=== PATIENT | male | born 2005 | race African-American/Black ===

== ENCOUNTER 2025-02-07 09:36 | Outpatient (REF) | payer MEDICAID, SELFPAY ==
[2025-02-07 15:25] LABS: CT PCR Urine NOT DETECTED (Not Detect.); NG PCR Urine NOT DETECTED (Not Detect.)
[2025-02-08 23:44] LABS: Trichomonas vag. RNA Ur Male NOT DETECTED (NOT DETECTED)
== END 2025-02-07 09:37 | disposition home or self-care (01) ==
LOC: HO.LNP 09:36
PROVIDERS: Family Medicine
DX: J06.9 Acute upper respiratory infection, unspecified (principal); R21 Rash and other nonspecific skin eruption; Z11.3 Encounter for screening for infections with a predominantly sexual mode of transmission; Z20.2 Contact with and (suspected) exposure to infections with a predominantly sexual mode of transmission
CPT/HCPCS: 87491; 87591; 87661; 99202

== ENCOUNTER 2025-02-07 09:36 | Outpatient (AMB) | payer MEDICAID, SELFPAY ==
--- NOTE | 2025-02-07 09:54 | AM.OFFWIN_ITS ---
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 Allergies No Known Allergies Allergy (Verified 02/07/25 10:06) Medication List - Last Reconciled 02/07/25 by Shruti Quick MD No Known Home Meds Do you need a note to return to daycare/school/sports/work: No HPI HPI Comments History of Present Illness Details History of Present Illness The patient is a 20-year-old male presenting for evaluation of a rash, swollen lymph nodes, right ear discomfort and associated symptoms after feeling unwell for approximately 5 days. - The patient reports the onset of sympt oms approximately 5 days ago. - He started noticing right ear pain, fa cial pressure, swollen lymph nodes in the groin and neck, and fatigue - He developed a non-pruritic, non-painf ul rash on his chest, back, stomach, and arms, which he noticed after taking Aleve. - He has taken Aleve in the past without any prior reaction. - No shortness of breath or trouble jemma thing/speaking. - He has tried Benadryl and ibuprofen wi thout noticeable improvement in his symptoms. - Reports rash and lymphadenopathy has s rachelle been improving. - The patient denies any new medications , foods, lotions, soaps, or detergents. - He has a history of asthma but does no t use an inhaler. - He believes his childhood vaccinations are up to date. - He has been using Flonase for the past few days. - He denies sore throat, runny nose, and congestion, fevers, chills, N/V/D. - Patient also requesting STD testing. Denies any concern for STDs. Denies any urinary symptoms, penile discharge, testicular pain, or scrotal swelling Review of Systems Constitutional: Negative for fevers, chills HENT: Reports right ear pain and facial pressure. Negative for congestion, rhinorrhea, sore throat Lymphatic: Reports swollen lymph nodes in his neck and groin. Respiratory: Negative for cough, shortness of breath Cardiac: Negative for chest pain Gastrointestinal: Denies nausea, vomiting, or diarrhea. Genitourinary: Denies urinary symptoms or penile discharge. Skin: Reports a non-pruritic, non-painful rash over his chest, back, and arms. Musculoskeletal: Negative for myalgias, Physical Exam General Appearance: Normal appearance, well developed. No acute distress. ENT: External ears and ear canals normal. Bilateral middle ear effusions present. TM without erythema or bulging. No significant nasal discharge or congestion present. No postnasal drip. Oropharynx clear without erythema or exudate. Slightly enlarged Left anterior cervical lymph node palpated without tenderness Head: Normocephalic, atraumatic. Pulmonary: No respiratory distress. Clear to auscultation bilaterally. Speaking in full sentences Cardiac: Regular rate and rhythm. No murmurs. Musculoskeletal: Moving all extremities spontaneously and against gravity. Skin: Erythematous maculopapular rash primarily present along the torso and back. Nontender and nonpruritic. Mental Status: Alert and Oriented x 3. Psychiatric: Normal mood. Normal affect. Physical Exam Vital Signs: Last Vital Signs Temp 98.7 F 02/07/25 09:57 Pulse 90 02/07/25 09:57 BP 131/76 02/07/25 09:57 Pulse Ox 98 02/07/25 09:57 Oxygen Delivery Method Room Air 02/07/25 09:57 BMI result Body Mass Index 23.3 Assessment & Plan Assessment & Plan (1) Viral URI: Code(s): J06.9 - Acute upper respiratory infection, unspecified (2) Rash: Code(s): R21 - Rash and other nonspecific skin eruption (3) Screening for STD (sexually transmitted disease): Code(s): Z11.3 - Encounter for screening for infections with a predominantly sexual mode of transmission Plan Assessment and Plan 1. Viral Syndrome vs. Allergic Reaction - Patient presents with lymphadenopathy, facial pressure, right ear pressure, a nd fatigue for 5 days. He also developed a maculopapular rash along the torso and back after taking Aleve that has been improving. - Discussed rash appears secondary to viral exanthem versus allergic reaction. Less likely for Aleve to be cause of rash as his previous tolerating the medication in the past without issues. Patient reports childhood immunizations are up-to-date. - Offered COVID flu RSV testing which patient declined - As the rash has been improving, recommended Zyrtec or Abbey daily to help with symptoms. - Advised to continue Flonase daily to help with sinus pressure. Advised medication may take a couple of days taken effect - Recommend rest and increasd fluids - Follow-up if worsening symptoms Screening for Sexually Transmitted Infections - Patient requested STD testing; he is currently asymptomatic - The patient provided a urine sample for gonorrhea, chlamydia, and trichomonas testing. Blood work for HIV, hepatitis B, hepatitis C, and syphilis was ordered. The patient was directed to the lab to have samples collected. - Recommend to avoid sexual activty until results - The patient will be contacted with all test results. Patient was informed and verbally consented to the use of an ambient scribe for clinic note documentation during the visit. Orders: Orders CT NG by PCR Urine Today Z11.3 - Encounter for screening for infections with a predominantly sexual mode of transmission Hepatitis B Surface Antigen Today Z11.3 - Encounter for screening for infections with a predominantly sexual mode of transmission Hepatitis C Antibody Today Z11.3 - Encounter for screening for infections with a predominantly sexual mode of transmission HIV Ab/Ag Today Z11.3 - Encounter for screening for infections with a predominantly sexual mode of transmission Syphilis Screen Today Z11.3 - Encounter for screening for infections with a predominantly sexual mode of transmission Trichomonas vag. RNA Ur Male Today Z11.3 - Encounter for screening for infections with a predominantly sexual mode of transmission Coding Level of Care Code New Pt Level 3 (32919) Diagnoses Viral URI J06.9 Rash R21 Screening for STD (sexually transmitted disease) Z11.3
[2025-02-07 09:57] VITALS: BP 131/76; PULSE 90; TEMP 37.1; O2SAT 98; BMI 23.3
== END 2025-02-07 10:44 | disposition home or self-care (01) ==
PROVIDERS: Visit Provider Family Medicine
DX: J06.9 Acute upper respiratory infection, unspecified (principal); R21 Rash and other nonspecific skin eruption; Z11.3 Encounter for screening for infections with a predominantly sexual mode of transmission
CPT/HCPCS: 99203

== ENCOUNTER 2025-02-07 10:43 | Outpatient (REF) | payer MEDICAID, SELFPAY ==
[2025-02-08 04:10] LABS: Syphilis Screen Reactive (Nonreactive)
[2025-02-08 04:46] LABS: HBsAGNum1 0.51 S/CO (0.00-0.99); HIV Num 1 0.13 S/CO (0.00-0.99); Hepatitis B Surface Antigen Negative (Negative); ~HepC Num1 0.28 S/CO (0.00-0.79); ~Hepatitis C Antibody Nonreactive (Nonreactive)
[2025-02-15 12:58] LABS: T.Pallidum Particle Agg Test Reactive (Nonreactive)
== END 2025-02-07 10:44 | disposition home or self-care (01) ==
LOC: HO.HKASLDS 10:43
PROVIDERS: Visit Provider Family Medicine
DX: Z11.3 Encounter for screening for infections with a predominantly sexual mode of transmission (principal); Z11.59 Encounter for screening for other viral diseases
CPT/HCPCS: 36415; 86592; 86780; 86803; 87340; 87389

== ENCOUNTER 2025-02-22 10:02 | Outpatient (REF) | payer MEDICAID, SELFPAY ==
[2025-02-22 13:42] LABS: MANUAL DIFF FLAG NO
[2025-02-22 13:51] LABS: Hematocrit 42.7 % (42.0-52.0); Hemoglobin 14.4 g/dl (14.0-18.0); Imm Gran Abs Auto 0.01 X10*3/uL (0.00-0.03); Imm Gran Pct Auto 0.1 % (0.0-0.4); Lymphocytes Absolute Auto 2.1 X10*3/uL (1.2-4.9); Mean Corpuscular HGB Conc 33.7 g/dl (31.0-36.0); Mean Corpuscular Hemoglobin 30.8 pg (27.0-33.0); Mean Corpuscular Volume 91.4 fL (80.0-98.0); NRBC Abs Auto 0.000 X10*3/uL (0.0-0.012); NRBC Pct Auto 0.0 /100WBC (0.0-0.2); Platelet Count 237 X10*3/uL (160-400); Red Blood Count 4.67 X10*6/uL (4.60-5.80); White Blood Count 7.2 X10*3/uL (4.8-10.8)
[2025-02-22 14:02] LABS: Appearance Urine Clear; Glucose Urine UA Negative (Negative); PH 5.5 (5.0-9.0); Specific Gravity - Urine 1.020 (1.005-1.025)
[2025-02-22 18:36] LABS: Alanine Aminotransferase 47 U/L (0-40); Albumin Level 4.4 g/dL (3.5-5.0); Alkaline Phosphatase 54 U/L (39-117); Anion Gap 10 (12-20); Aspartate Amino Transferase 31 U/L (5-37); Blood Urea Nitrogen 13 mg/dL (9-16); Calcium 9.3 mg/dL (8.4-10.2); Carbon Dioxide 26 mmol/L (22-29); Chloride 107 mmol/L (96-108); Cholesterol 171 mg/dL (<200); Estimated Glomerular Filt Rate > 60; HDL Cholesterol 40 mg/dL (>40); Magnesium 2.0 mg/dL (1.6-2.6); Potassium 4.3 mmol/L (3.3-5.1); Sodium 139 mmol/L (135-145); Total Protein 7.1 g/dL (6.5-8.0); Triglycerides 65 mg/dL (<150)
[2025-02-22 19:01] LABS: Folate 10.7 ng/mL (> or = 4.0); Vitamin B12 406 pg/mL (200-900)
[2025-02-27 15:09] LABS: VITAMIN D (1,25 OH) D3 71 pg/mL; Vit D (1,25-Dihydroxy) Total 71 pg/mL (18-72); Vitamin D (1,25 OH) D2 <8 pg/mL
== END 2025-02-22 10:03 | disposition home or self-care (01) ==
LOC: HO.HKASLDS 10:02
PROVIDERS: PCP Student in an Organized Health Care Education/Training Program; Visit Provider Student in an Organized Health Care Education/Training Program
DX: Z13.9 Encounter for screening, unspecified (principal); Z23 Encounter for immunization; A53.9 Syphilis, unspecified; F90.9 Attention-deficit hyperactivity disorder, unspecified type; F32.A Depression, unspecified; N64.52 Nipple discharge; F12.90 Cannabis use, unspecified, uncomplicated; Z79.2 Long term (current) use of antibiotics
CPT/HCPCS: 36415; 80053; 80061; 81003; 82607; 82652; 82746; 83036; 83735; 84443; 85025; 90471; 90656; 99202

== ENCOUNTER 2025-02-22 10:02 | Outpatient (AMB) | payer MEDICAID, SELFPAY ==
[2025-02-22 10:04] VITALS: BP 133/74; PULSE 88; TEMP 36.7; O2SAT 96; BMI 24.0
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
== END 2025-02-22 10:33 | disposition home or self-care (01) ==
LOC: HO.HMCFMS 10:03
PROVIDERS: Visit Provider Student in an Organized Health Care Education/Training Program
DX: A53.9 Syphilis, unspecified (principal); F90.9 Attention-deficit hyperactivity disorder, unspecified type; F32.A Depression, unspecified; N64.52 Nipple discharge; F12.90 Cannabis use, unspecified, uncomplicated; Z23 Encounter for immunization

== ENCOUNTER 2025-03-09 11:24 | Outpatient (AMB) | payer MEDICAID, SELFPAY ==
--- NOTE | 2025-03-09 11:28 | A.OFFPC_ITS ---
Vital Signs 03/09/25 11:34 Height 5 ft 9.88 in Weight 161 lb BMI 23.2 BP 118/57 L Blood Pressure Location Lt brachial Position Sitting Pulse 77 Pulse Source Pulse Oximeter Temp 97.9 F Temp Source Oral Pulse Oximetry (%) 97 Oxygen Delivery Method Room Air Intake Visit Reasons: 2 wk - lab review Accompanied by: Self / Same As Patient Allergies No Known Allergies Allergy (Verified 03/09/25 11:29) Tobacco use date assessed: 03/09/25 Dental Screening Dental Screen Date: 03/09/25 Did you have a dental visit in the last 12 months?: Yes HPI HPI Comments History of Present Illness Details History of Present Illness The patient is a 20 year old male presenting with a review of laboratory results. Hyperlipidemia: The patient's lipid panel shows a slightly elevated bad cholesterol and borderline normal good cholesterol, although total cholesterol and triglycerides are good. The labs were not done in a fasting state, which may have skewed the results to be higher than they actually are. History of syphilis: The patient has a history of syphilis and received an inquiry about post- exposure prophylaxis measures. He was counseled on options such as Doxy-PEP. Diagnostic Results: - Complete blood count: White blood cell s, red blood cells, hemoglobin, hemato crit, and platelets are normal. - Comprehensive metabolic panel: Sodium, potassium, liver function, calcium, and magnesium are normal. - Glucose: Random glucose and hemoglobin A1c are within normal limits. - Lipid panel: Bad cholesterol is slight ly high, good cholesterol is borderline normal, and total cholesterol and triglycerides are good. - Vitamins: B12 and vitamin D levels are good. - Folate: Normal. - Thyroid function tests: Normal. - Urinalysis: Normal. Past Medical History - History of syphilis, status post treat ment. Health Maintenance REPLACED BY [facility] Medical History (Updated 03/09/25 @ 22:14 by Fan Penny MD) History of syphilis Hyperlipidemia Cannabis use disorder Nipple discharge Depression ADHD Syphilis Family History Mother No problems noted. Father No problems noted. Social History Housing: Apartment Patient Tobacco Use Status: Never used Tobacco e-Cigarette/Vaping Use: Never Used service: No Current occupational status: unemployed Cognitive needs: No Hearing needs: No Vision needs: No Questionnaire Thrive Questionnaire Date Thrive assessed: 02/22/25 I am a: Patient What is your living situation today?: I have a steady place to live Within the past 12 months, did the food you bought not last and you didn't have the money to get more?: Sometimes True Within the past 12 months, did you worry whether your food would run out before you got money to buy more?: Sometimes True Do you have trouble paying for medicines?: I choose not to answer this question Do you have trouble getting transportation to medical appointments?: I choose not to answer this question Do you have trouble paying your heating and electricity bill?: I choose not to answer this question Do you have trouble taking care of your child, family member or friend?: No Are you currently unemployed and looking for a job?: Yes Are you interested in more education?: Yes THRIVE Score: 2 GARO-7 AMB Questionnaire GARO-7 Date GARO - 7 assessed: 02/22/25 Source: Developed by Drs. Rogerio Kirkland, Jossy Gan, Willam Barr and colleagues, with an educational emmanuel from [employer]. Review of Systems Narrative Review of Systems - General: Denies any current concerns. 10-point ROS reviewed and negative except as noted in HPI Physical exam (Primary Care) Vital Signs: Last Vital Signs Temp 97.9 F 03/09/25 11:34 Pulse 77 03/09/25 11:34 BP 118/57 L 03/09/25 11:34 Pulse Ox 97 03/09/25 11:34 Oxygen Delivery Method Room Air 03/09/25 11:34 BMI result Body Mass Index 23.2 Tobacco/Smoking Status: Tobacco use Status Tobacco use date assessed 03/09/25 03/09/25 11:32 Patient Tobacco Use Status Never used Tobacco 03/09/25 11:32 e-Cigarette/Vaping Use Never Used 03/09/25 11:32 Thrive Assessment: Date of Thrive Assessment Date Thrive assessed 02/22/25 03/09/25 11:32 Narrative Physical Exam General: Well-appearing, in no acute distress. Vital signs: Within normal limits. HEENT: Normocephalic, atraumatic. PERRLA, EOMI. Conjunctiva clear, sclera anicteric. Oropharynx clear, mucous membranes moist. TMs intact bilaterally. Neck: Supple, no lymphadenopathy, no thyromegaly, no JVD or carotid bruits. Cardiovascular: RRR, normal S1/S2, no murmurs, rubs, or gallops. Peripheral pulses 2+ and symmetric. No edema. Respiratory: Lungs clear to auscultation bilaterally, no wheezes, rales, or rhonchi. Normal effort. Abdomen: Soft, non-tender, non-distended. Normoactive bowel sounds. No hepatosplenomegaly, no masses. MSK: Full range of motion, no joint swelling or deformity. Normal gait. Skin: Warm, dry, intact. No rashes, lesions, or pallor. Neuro: Alert and oriented x3. Cranial nerves II-XII intact. Strength 5/5 throughout. Sensation intact. Reflexes 2+ symmetric. Normal coordination and gait. Psych: Appropriate mood and affect. Normal judgment and insight. Office Procedures Flu Questionnaire Does the patient have a severe egg allergy?: No Does the patient have severe life threatening allergies?: No Does the patient have a fever or illness today?: No Has the patient ever had Guillain-[place] Syndrome?: No Has the patient ever had any past reaction to a flu shot?: No Immunizations Fluarix [id number] (PF) 45 mcg (15 mcg x 3)/0.5 mL IM syringe Performing Provider: Fan Penny MD Performing Location: [facility] [place] [facility] Documented (not given) by: Myrtle Smith CMA on 03/09/25 11:38 Reason Not Given: Received Previously Coding Level of Care Code Est Pt Level 3 (12119) Add On Problem Visit Only Diagnoses Hyperlipidemia E78.5 History of syphilis Z86.19 Assessment & Plan Assessment & Plan (1) Hyperlipidemia: Code(s): E78.5 - Hyperlipidemia, unspecified Category: Medical (2) History of syphilis: Code(s): Z86.19 - Personal history of other infectious and parasitic diseases Category: Medical Plan Consent Patient was informed and verbally consented to the use of an ambient scribe for clinic note documentation during this visit. Plan 1. Lab Results Review - Labs were reviewed with the patient and most results were within normal limits, including CBC, CMP, glucose/A1c, vitamin levels, thyroid, and urinalysis. 2. Hyperlipidemia - The lipid panel, which was non-fasting, showed slightly elevated bad cholesterol and borderline good cholesterol. - The non-fasting state may have skewed the results, and I am not concerned at this time. 3. History Of Syphilis - Syphilis testing will be repeated in April to confirm successful treatment. - The patient inquired about post-exposure prophylaxis, specifically doxy-PEP. - I have advised him to research the topic and schedule a follow-up appointment to discuss it further and make an informed decision. Discussion Notes I reviewed the patient's recent lab results, which were largely reassuring. I noted his non-fasting lipid profile showed slightly elevated bad cholesterol, but I am not concerned at this time as the non-fasting state could have skewed the results. We discussed the plan to repeat syphilis testing in April to ensure treatment was effective. The patient inquired about post-exposure prophylaxis (doxy-PEP), and I advised him to research it and schedule a follow- up visit to discuss his findings and make an informed decision together. I estab lished myself as his new primary care physician and encouraged him to a schedule an appointment for any future questions or concerns. Patient Instructions - Your lab results were mostly normal. - Your bad cholesterol was a little high, but this might be because you did not fast before the test. - We will repeat your syphilis test in April to make sure the treatment worked. - Please research doxy-PEP (post-exposure prophylaxis), and then make an appointment to talk with me about it. - Feel free to come in and talk to me about any questions or concerns you have in the future. Medical Decision Making The patient presented for a review of his recent laboratory studies. His results are largely unremarkable, showing normal CBC, CMP, glucose, A1c, vitamin levels, and thyroid function. The non-fasting lipid panel revealed a mild elevation in bad cholesterol, which I attribute to the non-fasting state and is not clinically concerning at this time. Follow-up syphilis serology is planned for April to confirm treatment efficacy. The patient inquired about post-exposure prophylaxis for STIs. Given the importance of shared decision-making, I have tasked the patient with researching this topic so we can have a more informed discussion during a subsequent visit to determine the best course of action for him. Total Time Statement 20 min Total time spent caring for the patient today includes pre-visit chart review, documentation, review of laboratory and diagnostic imaging results, medication reconciliation, medically necessary evaluation, counseling on diagnoses, care coordination, ordering appropriate tests and medications, review of tests performed by other providers, reporting test results to the patient, and communication with other healthcare providers. Orders: Orders Influenza [id number] Immunization Today Z23 - Encounter for immunization
[2025-03-09 11:34] VITALS: BP 118/57; PULSE 77; TEMP 36.6; O2SAT 97; BMI 23.2
== END 2025-03-09 11:43 | disposition home or self-care (01) ==
LOC: HO.HMCFMS 11:25
PROVIDERS: PCP Student in an Organized Health Care Education/Training Program; Visit Provider Student in an Organized Health Care Education/Training Program
DX: E78.5 Hyperlipidemia, unspecified (principal); Z86.19 Personal history of other infectious and parasitic diseases; Z23 Encounter for immunization

== ENCOUNTER → 2025-03-09 11:24 | Outpatient (BNVA) | payer MEDICAID, SELFPAY | PROVIDERS: Visit Provider Student in an Organized Health Care Education/Training Program | DX: E78.5 Hyperlipidemia, unspecified (principal); Z86.19 Personal history of other infectious and parasitic diseases | CPT/HCPCS: 90471; 99212 ==

== ENCOUNTER 2025-03-16 10:26 | Outpatient (AMB) | payer MEDICAID, SELFPAY ==
[2025-03-16 10:40] VITALS: PULSE 82; TEMP 37.4; O2SAT 99; BMI 23.2
--- NOTE | 2025-03-16 10:40 | AM.OFFWIN_ITS ---
Intake Vital Signs 03/16/25 10:40 Height 5 ft 9.88 in Weight 161 lb BMI 23.2 Blood Pressure Location Lt brachial Position Sitting Pulse 82 Pulse Source Pulse Oximeter Temp 99.3 F Temp Source Oral Pulse Oximetry (%) 99 Oxygen Delivery Method Room Air Intake Visit Reasons: EP- Swollen Lymph Nodes Patient Tobacco Use Status: Never used Tobacco Allergies No Known Allergies Allergy (Verified 03/09/25 11:29) HPI HPI Comments History of Present Illness Details History of Present Illness The patient is a 20-year-old male presenting with rectal discomfort recurrent inguinal lymphadenopathy. - Patient reports a 3-4 day history of p elvic and rectal discomfort. - The pain is exacerbated by bowel movem ents and when straining to urinate. - He denies any diarrhea or constipation , however has noticed a small amount of blood on his toilet paper when wiping. - He assumed his symptoms were due to he morrhoids and has been using [id number] suppositories, cooling gel, and witch kee pads which have not provided significant relief. - He has also noticed inguinal lymphaden opathy bilaterally. - He reports nausea, however no vomiting . - He denies any penile pain, penile disc harge, testicular pain, urinary frequency, dysuria, or urinary urgency. Denies any blood in the urine. - Patient recently completed a full cour se of antibiotics for syphilis about a month ago. - He is scheduled for follow-up blood wo rk in April for confirmation of infection clearance. - Patient denies any penetrative sexual activity in the last 6 months. Reports participating in [employer]. Review of Systems Constitutional: Negative for fevers, chills Gastrointestinal: Reports rectal pain and blood on toilet paper upon wiping. Reports nausea. Negative for vomiting, constipation, diarrhea, black tarry stools Genitourinary: Negative for difficulty urinating, dysuria, urinary frequency, urinary urgency, flank pain, hematuria, genital sores, penile pain, penile discharge, penile swelling, scrotal swelling, testicular pain Lymphatic: Reports swollen lymph nodes in the groin. Skin: Negative for rash or wounds Physical Exam General Appearance: Normal appearance, well developed. No acute distress Head: Normocephalic, atraumatic Pulmonary: No respiratory distress. Speaking in full sentences Musculoskeletal: Moving all extremities spontaneously and against gravity GI: Patient consented to perform sensitive exam. He declined escort blind. No external hemorrhoids or anal fissures noted. No other rashes or wounds noted along the external sphincter. No active bleeding present. Patient reported tenderness with rectal exam. : No swelling, erythema, or tenderness of the testicles or penis. No penile discharge noted. No genital sores or wounds noted. Mental Status: Alert and Oriented x 3 Psychiatric: Normal mood. Normal affect. [facility] Medical History (Updated 03/09/25 @ 22:14 by Fan Penny MD) History of syphilis Hyperlipidemia Cannabis use disorder Nipple discharge Depression ADHD Syphilis Family History Mother No problems noted. Father No problems noted. Social History Housing: Apartment Patient Tobacco Use Status: Never used Tobacco e-Cigarette/Vaping Use: Never Used service: No Current occupational status: unemployed Cognitive needs: No Hearing needs: No Vision needs: No Physical Exam Vital Signs: Last Vital Signs Temp 99.3 F 03/16/25 10:40 Pulse 82 03/16/25 10:40 Pulse Ox 99 03/16/25 10:40 Oxygen Delivery Method Room Air 03/16/25 10:40 BMI result Body Mass Index 23.2 Results AMB Urinalysis, Automated UA Leukoctes 0 Jena/uL Last Edit by Lissette Ghosh MA on 03/16/25 11:48 UA Nitrite Negative Last Edit by Lissette Ghosh MA on 03/16/25 11:48 UA Urobilinogen 0.2 mg/dL Last Edit by Lissette Ghosh MA on 03/16/25 11:48 UA Protein 0 mg/dL Last Edit by Lissette Ghosh MA on 03/16/25 11:48 UA pH 6.0 Last Edit by Lissette Ghosh MA on 03/16/25 11:48 UA Blood 0 Danyel/uL Last Edit by Lissette Ghosh MA on 03/16/25 11:48 UA Specific [place] 1.005 Last Edit by Lissette Ghosh MA on 03/16/25 11:4 8 UA Ketone Negative Last Edit by Lissette Ghosh MA on 03/16/25 11:48 UA Bilirubin 0 mg/dL Last Edit by Lissette Ghosh MA on 03/16/25 11:48 UA Glucose 0 mg/dL Last Edit by Lissette Ghosh MA on 03/16/25 11:48 Results Reviewed Results Reviewed: Laboratory Last Values Urine pH (Auto) 6.0 03/16/25 11:46 Specific [place] (Auto) 1.005 03/16/25 11:46 Urine Protein (Auto) 0 mg/dL 03/16/25 11:46 Glucose (UA)(Auto) 0 mg/dL 03/16/25 11:46 Urine Ketones (Auto) Negative 03/16/25 11:46 Urine Blood (Auto) 0 Danyel/uL 03/16/25 11:46 Urine Nitrite (Auto) Negative 03/16/25 11:46 Urine Bilirubin (Auto) 0 mg/dL 03/16/25 11:46 Urine Urobilinogen (Auto) 0.2 mg/dL 03/16/25 11:46 Leukocyte Esterase (Auto) 0 Jena/uL 03/16/25 11:46 Assessment & Plan Assessment & Plan (1) Rectal pain: Code(s): K62.89 - Other specified diseases of anus and rectum Plan - Patient reports rectal discomfort for the last 3-4 days. - He reports associated pelvic pressure, nausea and blood on the toilet paper after wiping, however denies any vomiting, abdominal pain, constipation, diarrhea, fevers - UA was unremarkable. - Rectal exam did not reveal any external hemorrhoids or anal fissures. Patient reported tenderness with rectal examination. FOBT not currently available in our office. - Discussed possible concern for internal hemorrhoids. - Will trial lidocaine-hydrocortisone cream. Advised not to use for more than week as it can thin the skin - Ensure adequate hydration to soften stools and reduce discomfort during bowel movements. Avoid against straining during bowel movements. Recommend the use of agents such as MiraLax if needed. - Patient requesting repeat gonorrhea/chlamydia testing. Rectal swab also obtained for gonorrhea/chlamydia testing. - He recently had testing for HIV, hep B, hep C, trichomonas one month ago and denies any recent penetrative sexual intercourse. - Follow-up blood work scheduled for April for confirming syphilis clearance. Reiterated importance of having blood work performed. - Advised follow up with PCP if no improvement in symptoms or sooner medical evaluation if worsening symptoms Patient was informed and verbally consented to the use of an ambient scribe for clinic note documentation during the visit. Orders: Orders CT NG by PCR Urine 03/16/25 N39.0 - Urinary tract infection, site not specified Trichomonas vag. RNA Ur Male 03/16/25 Z11.3 - Encounter for screening for infections with a predominantly sexual mode of transmission AMB Urinalysis Automated 03/16/25 Z13.9 - Encounter for screening, unspecified CT NG RNA TMA, Rectal 03/16/25 K62.89 - Other specified diseases of anus and rectum Medications: New lidocaine HCl-hydrocortison ac 3-0.5 % 1 appl MI Q12H 98 grams 0RF 1 week Coding Level of Care Code Est Pt Level 3 (70439) Diagnoses Rectal pain K62.89
== END 2025-03-16 11:56 | disposition home or self-care (01) ==
LOC: HO.HMCWIS 10:26
PROVIDERS: PCP Student in an Organized Health Care Education/Training Program; Visit Provider Family Medicine
DX: Z13.9 Encounter for screening, unspecified (principal)

== ENCOUNTER 2025-03-16 10:26 | Outpatient (REF) | payer MEDICAID, SELFPAY ==
[2025-03-17 01:02] LABS: CT PCR Urine NOT DETECTED (Not Detect.); NG PCR Urine NOT DETECTED (Not Detect.)
[2025-03-20 23:19] LABS: Trichomonas vag. RNA Ur Male NOT DETECTED (NOT DETECTED)
== END 2025-03-16 10:27 | disposition home or self-care (01) ==
LOC: HO.LAB 10:26
PROVIDERS: PCP Student in an Organized Health Care Education/Training Program; Visit Provider Family Medicine
DX: K62.89 Other specified diseases of anus and rectum (principal); N39.0 Urinary tract infection, site not specified; Z20.2 Contact with and (suspected) exposure to infections with a predominantly sexual mode of transmission; Z13.89 Encounter for screening for other disorder
CPT/HCPCS: 81003; 87491; 87591; 87661; 99212